=== PATIENT | male | born 1955 | race Caucasian/White ===

== ENCOUNTER → 2024-03-11 10:39 | Outpatient (BNVA) | payer MEDICARE, SELFPAY | PROVIDERS: PCP Physician Assistant; Referring Provider Physician Assistant; Visit Provider Nurse Practitioner Gerontology ==

== ENCOUNTER 2024-03-11 12:08 | Outpatient (CLI) | payer MEDICARE, SELFPAY ==
[2024-03-12 18:57] LABS: PSA, Diagnostic 4.7 ng/mL (<=6.5)
== END 2024-03-11 12:09 | disposition home or self-care (01) ==
LOC: LBO 12:11
PROVIDERS: PCP Physician Assistant; Referring Provider Nurse Practitioner Gerontology; Visit Provider Nurse Practitioner Gerontology
DX: R97.20 Elevated prostate specific antigen [PSA] (principal); R33.9 Retention of urine, unspecified
CPT/HCPCS: 36415; 51798; 99204; 84153